=== PATIENT | male | born 1975 | race Caucasian/White ===

== ENCOUNTER 2017-01-20 10:03 | Emergency (ER) | payer SELFPAY ==
[2017-01-20 10:10] VITALS: BP 149/103; BMI 26.7
[2017-01-20] MEDS ORDERED: IMITREX INJ SC ONE ×2 (10:33→10:41)
[2017-01-20] MEDS ORDERED: DEMEROL INJ IM ONE (10:33)
--- NOTE | 2017-01-20 10:35 | DR.HEADACH ---
HPI - Time Seen Time seen: 10:20 - Primary Care Physician Primary Care Physician: nfd - Complaint/Symptoms Chief Complaint Doctors Comments: History as stated. Patient had CT of brain in [facility] which was negative .He states that this headache has been ongoing for three months with very little relief. He sometimes has left sided facial paralysis associated. The pain radiates down neck. Chief Complaint:: patient stated for the past 2 months he has been having cluster migraines on and off. this morning it started around 630 and has not had any relief. - Source History Provided: Patient - Mode of Arrival Mode of Arrival: Ambulatory - Timing Onset of Chief Complaint: 01/20/17 PMH - PMH Past Medical History: Yes Past Medical History: Headaches Past Surgical History: Yes Surgical History: Ortho Surgery - Family History History of Family Medical Conditions: No - Social History Does patient currently use any type of tobacco product: Yes Have you used tobacco products in the last 12 months: Yes Type of Tobacco Use: Cigarettes Does any household member use tobacco: No Alcohol Use: None Do you use any recreational Drugs:: No Lives With: Family Lives Where: Home - infectious screening In the last 2 months have you had wt loss of >10#?: NO Have you had fever, night sweats or hemotysis?: No Have you traveled outside the country in the last 6 months?: No Isolation: Standard ROS - Review of Systems Eyes: No Symptoms Reported ENTM: No Symptoms Reported Respiratoy: No Symptoms Reported Cardiovascular: No Symptoms Reported Gastrointestinal/Abdominal: No Symptoms Reported Genitourinary: No Symptoms Reported Neurological: Headache Musculoskeletal: No Symptoms Reported Integumentary: No Symptoms Reported Hematologic/Lymphatic: No Symptoms Reported Endocrine: No Symptoms Reported Psychiatric: No Symptoms Reported All Other Systems: Reviewed and Negative PE - Vital Signs Vitals: Temperature 98.9 F Pulse Rate 84 Respiratory Rate 20 Blood Pressure 149/103 O2 Sat by Pulse Oximetry 100 - General General Appearance: Alert, In No Apparent Distress - Head Head Exam: Normal Inspection, Atraumatic - Eyes Eye exam: Normal Appearance, PERRL, EOMI Eyelids: Normal Inspection: Bilateral Pupils: Regular, Round: Bilateral Sclera/Conjunctival: Normal Inspection: Bilateral - ENT ENT Exam: Normal Exam, Normal Oropharynx External Ear Exam: Normal External Inspection TM/Canal Exam: Bilateral Normal Nose Exam: Normal Nose Exam Mouth Exam: Normal Inspection Teeth Exam: Normal Inspection Throat Exam: Normal Inspection - Neck Neck Exam: Normal Inspection - Chest Chest Inspection: Normal Inspection - Respiratory Respiratory Exam: Normal Lung Sounds Bilat Respiratory Exam: Bilateral Clear to Auscultation - Cardiovascular Cardiovascular Exam: Regular Rate, Normal Rhythm - Abdominal Exam Abdominal Exam: Normal Inspection, Normal Bowel Sounds Abdominal Tenderness: negative: RUQ, RLQ, LUQ, LLQ, Epigastrium, Suprapubic, Diffuse, Mild, Moderate, Severe, Other - Extremities Extremities Exam: Normal Inspection - Back Back Exam: Normal Inspection, Full ROM - Neurologic Neurological Exam: Alert, Oriented X3, CN II-XII Intact - Psychiatric Psychiatric Exam: Normal Affect - Skin Skin Exam: Warm, Dry MDM - Differential Diagnosis Differential Diagnosis: Considerations may include:: Cluster Course - Treatment Treatment: see orders - Reevaluation 1st: Improved - Diagnosis Discharge Problem: Cluster headache Qualifiers: Headache chronicity pattern: chronic headache Intractability: intractable Qualified Code(s): G44.021 - Chronic cluster headache, intractable - Discharge Plan Condition: Stable - Follow ups/Referrals Follow ups/Referrals: NFD,None [Primary Care Provider] - 3 days - Instructions
[2017-01-20] MEDS ORDERED: DEMEROL INJ ONE (10:42)
== END 2017-01-20 11:21 | disposition home or self-care (01) ==
LOC: ER 10:03
DX: R51 Headache (principal)
CPT/HCPCS: 96372; 99282; J2175; J3030